=== PATIENT | female | born 1975 | race American Indian/Alaskan Native ===

== ENCOUNTER 2018-06-28 12:51 | Emergency (ER) | payer OTHER ==
[2018-06-28 14:11] VITALS: BP 143/92
--- NOTE | 2018-06-28 15:01 | Emergency Department Report ---
Blank Doc - Documentation Documentation: 42 y o female presents with back and pelvic paib x yestterday she is seen by Dr Mike CABALLERO and has a f/u appt hx of Hysterectomy states worsening pain UA ordered reevaluate
[2018-06-28 15:28] LABS: HCG Qualitative,Urine Negative (Negative)
[2018-06-28 15:33] LABS: Bacteria,Urine 1+ /HPF (Negative); Bilirubin,Urine NEG (Negative); Blood,Urine NEG (Negative); Color,Urine Yellow (Yellow); Mucus,Urine FEW /HPF; Protein,Urine <15 mg/dL mg/dL (Negative); RBC,Urine < 1.0 /HPF (0.0-6.0); Urobilinogen,Urine < 2.0 mg/dL (<2.0)
[2018-06-28] MEDS ORDERED: DELTASONE PO ONE (15:57)
[2018-06-28] MEDS ORDERED: TORADOL IM ONE (15:57)
--- NOTE | 2018-06-28 16:03 | Emergency Department Report ---
ED Back Pain/Injury HPI - General Chief Complaint: Back Pain/Injury Stated Complaint: BACK/PELVIC PAIN Time Seen by Provider: 06/28/18 14:10 Source: patient Limitations: No Limitations - History of Present Illness Initial Comments: This is a 42-year-old female nontoxic, well nourished in appearance, no acute signs of distress presents to the ED with c/o of lower back pain. Patient denies any radiation of pain. Patient denies any trauma. Denies any bladder or bowel instability. Patient denies any vaginal discharge or bleeding. Patient denies any urinary symptoms. Denies any fever, chills, nausea, vomiting, headache, stiff neck, chest pain or shortness of breath. Patient denies any numbness or tingling. Denies any allergies. MD Complaint: back pain -: week(s) (1) Similar Symptoms Previously: No Radiation: none Severity: mild Severity scale (0 -10): 8 Quality: aching Consistency: intermittent Improves With: immobilization, walking Worsens With: movement, walking Associated Symptoms: denies other symptoms. denies: confusion, weakness, chest pain, numbness, difficulty walking, cough, difficulty urinating, diaphoresis, incontinence, fever/chills, constipation, headaches, abdominal pain, loss of appetite, malaise, nausea/vomiting, rash, seizure, shortness of breath, syncope - Related Data Previous Rx's Medication Instructions Recorded Last Taken Type metFORMIN [Glucophage] 500 mg PO BID #60 tablet 05/09/18 Unknown Rx metroNIDAZOLE [Metronidazole] 500 mg PO BID #14 tablet 05/09/18 Unknown Rx Cyclobenzaprine [Flexeril] 10 mg PO QHS PRN #10 tablet 06/28/18 Unknown Rx Ibuprofen [Motrin] 600 mg PO Q8H PRN #20 tablet 06/28/18 Unknown Rx Allergies Allergy/AdvReac Type Severity Reaction Status Date / Time No Known Allergies Allergy Unverified 05/09/18 11:06 ED Review of Systems ROS: Stated complaint: BACK/PELVIC PAIN Other details as noted in HPI Constitutional: denies: chills, fever Eyes: denies: eye pain, eye discharge, vision change ENT: denies: ear pain, throat pain Respiratory: denies: cough, shortness of breath, wheezing Cardiovascular: denies: chest pain, palpitations Endocrine: no symptoms reported Gastrointestinal: denies: abdominal pain, nausea, diarrhea Genitourinary: denies: urgency, dysuria, discharge Musculoskeletal: back pain. denies: joint swelling, arthralgia Skin: denies: rash, lesions Neurological: denies: headache, weakness, paresthesias Psychiatric: denies: anxiety, depression Hematological/Lymphatic: denies: easy bleeding, easy bruising ED Past Medical Hx - Past Medical History Hx Diabetes: Yes - Surgical History Additional Surgical History: Hyst - Social History Smoking Status: Never Smoker Substance Use Type: None - Medications Home Medications: Home Medications Medication Instructions Recorded Confirmed Last Taken Type metFORMIN [Glucophage] 500 mg PO BID #60 tablet 05/09/18 Unknown Rx metroNIDAZOLE [Metronidazole] 500 mg PO BID #14 tablet 05/09/18 Unknown Rx Cyclobenzaprine [Flexeril] 10 mg PO QHS PRN #10 tablet 06/28/18 Unknown Rx Ibuprofen [Motrin] 600 mg PO Q8H PRN #20 tablet 06/28/18 Unknown Rx ED Physical Exam - General Limitations: No Limitations General appearance: alert, in no apparent distress - Head Head exam: Present: atraumatic, normocephalic - Eye Eye exam: Present: normal appearance - Neck Neck exam: Present: normal inspection, full ROM. Absent: tenderness, meningismus, lymphadenopathy - Respiratory Respiratory exam: Present: normal lung sounds bilaterally. Absent: respiratory distress, wheezes, rales, rhonchi, stridor, chest wall tenderness, accessory muscle use, decreased breath sounds, prolonged expiratory - Cardiovascular Cardiovascular Exam: Present: regular rate, normal rhythm. Absent: irregular rhythm, systolic murmur, diastolic murmur, rubs, gallop - GI/Abdominal GI/Abdominal exam: Present: soft, normal bowel sounds. Absent: distended, tenderness, guarding, rebound, rigid, diminished bowel sounds - Extremities Exam Extremities exam: Present: normal inspection, full ROM, normal capillary refill - Back Exam Back exam: Present: normal inspection, full ROM, paraspinal tenderness (right lumbar paraspinal area). Absent: tenderness, CVA tenderness (R), CVA tenderness (L), muscle spasm, vertebral tenderness, rash noted - Expanded Back Exam Expanded Back exam: Absent: saddle anesthesia Back exam: Negative Straight Leg Raising: Left, Right - Neurological Exam Neurological exam: Present: alert, oriented X3 - Psychiatric Psychiatric exam: Present: normal affect, normal mood - Skin Skin exam: Present: warm, dry, intact, normal color. Absent: rash ED Course Vital Signs 06/28/18 14:10 Temperature 97.8 F Pulse Rate 98 H Respiratory 16 Rate Blood Pressure 143/92 O2 Sat by Pulse 100 Oximetry - Reevaluation(s) Reevaluation #1: 06/28/18 16:04 Patient is speaking in full sentences with no signs of distress noted. ED Medical Decision Making - Medical Decision Making This is a 42-year-old female that presents with low back strain. Patient is stable was examined by me. There is no spinal tenderness. UA is unremarkable. There is no cauda equina syndrome during examination. No bladder or bowel instability. Patient received Toradol 60 mg IM and prednisone in the ED which she stated that symptoms has resolved and subsided. Patient is discharged with muscle relaxant and Motrin. Patient was instructed not to operate any machinery while taking muscle relaxant as they cause her drowsiness. Patient was referred to Follow-up with a primary care doctor in 3-5 days or if symptoms worsen and continue return to emergency room as soon as possible. At time of discharge, the patient does not seem toxic or ill in appearance. No acute signs of distress noted. Patient agrees to discharge treatment plan of care. No further questions noted by the patient. This chart is dictated with using [employer] Dictation Program Critical care attestation.: If time is entered above; I have spent that time in minutes in the direct care of this critically ill patient, excluding procedure time. ED Disposition Clinical Impression: Low back strain Disposition: DC-01 TO HOME OR SELFCARE Is pt being admited?: No Does the pt Need Aspirin: No Condition: Stable Instructions: Cyclobenzaprine (By mouth), Muscle Strain (ED) Additional Instructions: Follow-up with your primary care doctor in 3-5 days or if symptoms worsen such as bladder or bowel stability, chest pain, short of breath, numbness or tingling sensation in extremities, headache, dizziness, visual changes, nausea vomiting, or abdominal pain, return back to emergency room as was possible. Take ibuprofen and Flexeril as prescribed. Do not operate heavy machinery while taking Flexeril due to sedation Prescriptions: Cyclobenzaprine [Flexeril] 10 mg PO QHS PRN #10 tablet PRN Reason: Muscle Spasm Ibuprofen [Motrin] 600 mg PO Q8H PRN #20 tablet PRN Reason: Pain Referrals: PRIMARY CARE, [Referring] - 3-5 Days CAYDEN KIMBLE MD [Staff Physician] - 3-5 Days [facility] [Outside] - 3-5 Days [facility] [Outside] - 3-5 Days Forms: Work/School Release Form(ED)
== END 2018-06-28 14:58 | disposition home or self-care (01) ==
LOC: ED 12:51
DX: S39.012A Strain of muscle, fascia and tendon of lower back, initial encounter (principal); E11.9 Type 2 diabetes mellitus without complications; Z90.710 Acquired absence of both cervix and uterus; X58.XXXA Exposure to other specified factors, initial encounter; Y99.8 Other external cause status; Y93.89 Activity, other specified; Y92.89 Other specified places as the place of occurrence of the external cause
CPT/HCPCS: 81001; 81025; 96372; 99283; J1885; J7512

== ENCOUNTER 2018-07-18 06:08 | Day surgery (SDC) | payer OTHER ==
[~2018-07-18 06:08] MED LIST: LACTATED RINGERS 1,000 ML IV SCH; NEURONTIN PO NR; TRANSDERM-SCOP TD NR; VERSED IV NR
[2018-07-18] MEDS ORDERED: NACL BACTERIOSTATIC INFILTRATI ONE (06:41)
[2018-07-18 07:04] VITALS: BP 120/83
[2018-07-18] MEDS ORDERED: HumuLIN R IV ONE (08:00)
--- NOTE | 2018-07-18 08:34 | Event Note ---
Date: 07/18/18 Patient arrived to pre-op holding area for scheduled surgical procedure. POCT glucose was 336. During anesthetic evaluation, patient reported noncompliance with metformin 2/2 adverse effects. She also admitted to cocaine use, most recently 1 day ago. I explained to her the anesthetic risks in light of recent cocaine use including significant intraoperative hyper/hypotention, perioperative [place], CVA, or and that these risks outweighed the benefits of this elective procedure. Blood glucose treated to more acceptable range prior to d/c and patient encouraged to follow with PCP regarding apparent poorly controlled diabetes. The patient verbalized understanding.
== END 2018-07-18 08:15 | disposition home or self-care (01) ==
LOC: OR 06:08
PROVIDERS: ATTEND Obstetrics & Gynecology
DX: D28.0 Benign neoplasm of vulva (principal); G43.909 Migraine, unspecified, not intractable, without status migrainosus; G47.30 Sleep apnea, unspecified; F32.9 Major depressive disorder, single episode, unspecified; F41.9 Anxiety disorder, unspecified; Z53.8 Procedure and treatment not carried out for other reasons; Z79.84 Long term (current) use of oral hypoglycemic drugs; Z79.899 Other long term (current) drug therapy; Z91.040 Latex allergy status; Z98.49 Cataract extraction status, unspecified eye; Z90.710 Acquired absence of both cervix and uterus; Z87.440 Personal history of urinary (tract) infections
CPT/HCPCS: 82962; J7120; J1815

== ENCOUNTER 2018-10-25 06:33 | Emergency (ER) | payer SELFPAY ==
[2018-10-25 08:37] LABS: Bacteria,Urine 4+ /HPF (Negative); Bilirubin,Urine NEG (Negative); Blood,Urine NEG (Negative); Mucus,Urine 3+ /HPF; Urobilinogen,Urine < 2.0 mg/dL (<2.0)
[2018-10-25 08:38] LABS: Color,Urine Yellow (Yellow)
[2018-10-25] MEDS ORDERED: LIDOCAINE VISCOUS 2% ONE (10:03)
[2018-10-25] MEDS ORDERED: TORADOL IV STA (10:05)
[2018-10-25 11:08] LABS: Alanine Aminotransferase 16 units/L (7-56); BUN/Creatinine Ratio 12; Blood Urea Nitrogen 7 mg/dL (7-17); Calcium 9.6 mg/dL (8.4-10.2); Hemolysis Index 30
[2018-10-25 11:11] LABS: Basophils % (Auto) 0.3 % (0.0-1.8); Eosinophils # (Auto) 0.3 K/mm3 (0.0-0.4); Eosinophils % (Auto) 4.1 % (0.0-4.3); Hematocrit 41.4 % (30.3-42.9); Hemoglobin 13.7 gm/dl (10.1-14.3); Lymphocytes # (Auto) 3.2 K/mm3 (1.2-5.4); Lymphocytes % (Auto) 38.4 % (13.4-35.0); Mean Corpuscular HGB Conc 33 % (30-34); Mean Corpuscular Volume 83 fl (79-97); Monocytes # (Auto) 0.5 K/mm3 (0.0-0.8); Monocytes % (Auto) 6.1 % (0.0-7.3); Platelet Count 255 K/mm3 (140-440); Red Blood Count 4.97 M/mm3 (3.65-5.03); Red Cell Distribution Width 14.2 % (13.2-15.2)
--- NOTE | 2018-10-25 12:28 | Emergency Department Report ---
ED Female HPI - General Chief complaint: Abdominal Pain Stated complaint: PELVIC/ABD PAIN Time Seen by Provider: 10/25/18 08:06 Source: patient Mode of arrival: Ambulatory Limitations: No Limitations - History of Present Illness Initial comments: 43-year-old obese diabetic, diabetic foot female was been noncompliant with her insulin therapy over the past month reports emergency department having a vaginal discharge has been unresponsive to her attempted [id number] therapies 2. She reports that pelvic area has worsened Darshan for discharge and more discomfort and given to call some dysuria. She is no vaginal bleeding and denies the possibility of an STD as she states she has not been sexually active for the last 5 months. No at abdominal pain, no fevers, chills, sweats, no hematuria, no hematochezia. No constipation or diarrhea. She reports no known pelvic trauma. MD Complaint: vaginal discharge, pelvic pain -: Gradual Location: suprapubic Radiation: non-radiating Severity: mild Consistency: constant Improves with: none Are you Now?: No Associated Symptoms: vaginal discharge. denies: nausea/vomiting, fever/chills, loss of appetite, dysuria, hematuria, rash, seizure, shortness of breath, syncope, weakness - Related Data Home Medications Medication Instructions Recorded Confirmed Last Taken Fluticasone [Flonase] 1 spray NS PRN PRN 07/11/18 07/18/18 07/11/18 09:00 Ibuprofen [Ibu] 400 mg PO PRN PRN 07/11/18 07/18/18 07/11/18 09:00 Previous Rx's Medication Instructions Recorded Last Taken Type metFORMIN [Glucophage] 500 mg PO BID #60 tablet 05/09/18 07/11/18 09:00 Rx Acyclovir [Zovirax Tab] 800 mg PO 5XD #40 tablet 10/25/18 Unknown Rx Fluconazole [Diflucan TAB] 150 mg PO ONCE #1 tablet 10/25/18 Unknown Rx Insulin NPH/Regular [Novolin 70/30] 25 unit SQ BIDDIAB #15 ml 10/25/18 Unknown Rx metroNIDAZOLE [Flagyl] 500 mg PO Q12HR #20 tab 10/25/18 Unknown Rx Allergies Allergy/AdvReac Type Severity Reaction Status Date / Time latex AdvReac Itching Verified 07/18/18 07:02 ED Review of Systems ROS: Stated complaint: PELVIC/ABD PAIN Other details as noted in HPI Constitutional: denies: chills, fever Eyes: denies: eye pain, eye discharge, vision change ENT: denies: ear pain, throat pain Respiratory: denies: cough, shortness of breath, wheezing Cardiovascular: denies: chest pain, palpitations Endocrine: no symptoms reported Gastrointestinal: denies: abdominal pain, nausea, diarrhea Genitourinary: discharge. denies: urgency, dysuria Musculoskeletal: denies: back pain, joint swelling, arthralgia Skin: denies: rash, lesions Neurological: denies: headache, weakness, paresthesias Psychiatric: denies: anxiety, depression Hematological/Lymphatic: denies: easy bleeding, easy bruising ED Past Medical Hx - Past Medical History Previous Medical History?: Yes Hx Hypertension: No Hx Diabetes: Yes Hx Headaches / Migraines: Yes (MIGRAINES) Hx HIV: No - Surgical History Past Surgical History?: Yes Additional Surgical History: Hysterectomy - Social History Smoking Status: Never Smoker Substance Use Type: None - Medications Home Medications: Home Medications Medication Instructions Recorded Confirmed Last Taken Type metFORMIN [Glucophage] 500 mg PO BID #60 tablet 05/09/18 07/18/18 07/11/18 09:00 Rx Fluticasone [Flonase] 1 spray NS PRN PRN 07/11/18 07/18/18 07/11/18 09:00 History Ibuprofen [Ibu] 400 mg PO PRN PRN 07/11/18 07/18/18 07/11/18 09:00 History Acyclovir [Zovirax Tab] 800 mg PO 5XD #40 tablet 10/25/18 Unknown Rx Fluconazole [Diflucan TAB] 150 mg PO ONCE #1 tablet 10/25/18 Unknown Rx Insulin NPH/Regular [Novolin 70/30] 25 unit SQ BIDDIAB #15 ml 10/25/18 Unknown Rx metroNIDAZOLE [Flagyl] 500 mg PO Q12HR #20 tab 10/25/18 Unknown Rx ED Physical Exam - General Limitations: No Limitations General appearance: alert, in no apparent distress - Head Head exam: Present: atraumatic, normocephalic - Eye Eye exam: Present: normal appearance - ENT ENT exam: Present: mucous membranes moist - Neck Neck exam: Present: normal inspection - Respiratory Respiratory exam: Present: normal lung sounds bilaterally. Absent: respiratory distress - Cardiovascular Cardiovascular Exam: Present: regular rate, normal rhythm. Absent: systolic murmur, diastolic murmur, rubs, gallop - GI/Abdominal GI/Abdominal exam: Present: soft, normal bowel sounds - External exam: Present: erythema, other (excoriated areas to the labia minora and medial aspect of the labial majora with fissures present as well. 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 Absent: cervical motion tendernes, adnexal tenderness, uterine enlargement, uterine tenderness - Extremities Exam Extremities exam: Present: normal inspection, full ROM, normal capillary refill. Absent: pedal edema, joint swelling - Back Exam Back exam: Present: normal inspection - Neurological Exam Neurological exam: Present: alert, oriented X3, CN II-XII intact - Psychiatric Psychiatric exam: Present: normal affect, normal mood - Skin Skin exam: Present: warm, dry, intact, normal color. Absent: rash ED Course Vital Signs 10/25/18 10/25/18 10/25/18 06:41 10:13 12:09 Temperature 97.6 F 97.8 F Pulse Rate 94 H Respiratory 18 16 16 Rate Blood Pressure 124/83 123/82 O2 Sat by Pulse Oximetry 10/25/18 12:10 Temperature Pulse Rate 87 Respiratory Rate Blood Pressure O2 Sat by Pulse 98 Oximetry ED Medical Decision Making - Lab Data Result diagrams: 10/25/18 10:31 10/25/18 10:31 Critical care attestation.: If time is entered above; I have spent that time in minutes in the direct care of this critically ill patient, excluding procedure time. ED Disposition Clinical Impression: Vaginitis, Ulcerative vaginitis, Chest pain, Type 2 diabetes mellitus with insulin therapy Disposition: - TO HOME OR SELFCARE Is pt being admited?: No Does the pt Need Aspirin: No Condition: Stable Instructions: Abdominal Pain (ED), Chest Pain (ED), Diabetes Mellitus Type 2 in Adults (ED) Prescriptions: Fluconazole [Diflucan TAB] 150 mg PO ONCE #1 tablet metroNIDAZOLE [Flagyl] 500 mg PO Q12HR #20 tab Insulin NPH/Regular [Novolin 70/30] 25 unit SQ BIDDIAB #15 ml Acyclovir [Zovirax Tab] 800 mg PO 5XD #40 tablet [facility] FERM[facility]N [Primary Care Provider] - 3-5 Days [facility] [Provider Group] - 3-5 Days
[2018-10-25 12:40] VITALS: BP 121/81
== END 2018-10-25 12:39 | disposition home or self-care (01) ==
LOC: ED 06:33
DX: N76.0 Acute vaginitis (principal); R07.89 Other chest pain; G43.909 Migraine, unspecified, not intractable, without status migrainosus; E11.9 Type 2 diabetes mellitus without complications; Z79.4 Long term (current) use of insulin; Z90.710 Acquired absence of both cervix and uterus; Z91.041 Radiographic dye allergy status; Z79.899 Other long term (current) drug therapy
CPT/HCPCS: 36415; 80053; 81001; 82962; 84484; 85025; 87076; 87086; 87186; 87210; 87591; 93005; 93010; 96374; 99284; J1885

== ENCOUNTER 2019-01-01 12:21 | Emergency (ER) | payer SELFPAY ==
--- NOTE | 2019-01-01 12:26 | Emergency Department Report ---
Blank Doc - Documentation Documentation: This is a 43-year-old female that presents with bilateral upper and lower ext tingling and numbness sensation. HX of diabetes. This initial assessment/diagnostic orders/clinical plan/treatment(s) is/are subject to change based on patient's health status, clinical progression and re- assessment by fellow clinical providers in the ED. Further treatment and workup at subsequent clinical providers discretion. Patient/guardians urged not to elope from the ED as their condition may be serious if not clinically assessed and managed. Initial orders include: 1- Patient sent to [facility] for further evaluation and treatment 2- labs
[2019-01-01 12:30] VITALS: BP 133/87
[2019-01-01 13:35] LABS: BUN/Creatinine Ratio 17; Blood Urea Nitrogen 12 mg/dL (7-17); Calcium 9.6 mg/dL (8.4-10.2); Hemolysis Index 8
[2019-01-01 14:37] LABS: Hematocrit 38.5 % (30.3-42.9); Hemoglobin 12.6 gm/dl (10.1-14.3); Mean Corpuscular HGB Conc 33 % (30-34); Mean Corpuscular Volume 84 fl (79-97); Platelet Count 265 K/mm3 (140-440); Red Cell Distribution Width 15.2 % (13.2-15.2)
--- NOTE | 2019-01-01 15:12 | Emergency Department Report ---
ED Extremity Problem HPI - General Chief complaint: Neuro Symptoms/Deficit Stated complaint: DIABETIC/NUMBNESS HANDS/FEET Time Seen by Provider: 01/01/19 12:25 Source: patient Mode of arrival: Ambulatory Limitations: No Limitations - History of Present Illness Initial comments: Patient is a 43-year-old female who has a past medical history of diabetes who is presenting with bilateral hand and foot numbness and pain. Patient states the pain didn't present for approximate 1 week. She denies any trauma. Patient states is a searing pain is 10 out of 10 in severity. Patient states her blood sugars have been fluctuating lately and she does have appointment soon to see her primary care physician. Patient denies any nausea vomiting fevers chills cough cold or congestion at this time. - Related Data Home Medications Medication Instructions Recorded Confirmed Last Taken Fluticasone [Flonase] 1 spray NS PRN PRN 07/11/18 07/18/18 07/11/18 09:00 Ibuprofen [Ibu] 400 mg PO PRN PRN 07/11/18 07/18/18 07/11/18 09:00 Previous Rx's Medication Instructions Recorded Last Taken Type metFORMIN [Glucophage] 500 mg PO BID #60 tablet 05/09/18 07/11/18 09:00 Rx Acyclovir [Zovirax Tab] 800 mg PO 5XD #40 tablet 10/25/18 Unknown Rx Fluconazole [Diflucan TAB] 150 mg PO ONCE #1 tablet 10/25/18 Unknown Rx Insulin NPH/Regular [Novolin 70/30] 25 unit SQ BIDDIAB #15 ml 10/25/18 Unknown Rx metroNIDAZOLE [Flagyl] 500 mg PO Q12HR #20 tab 10/25/18 Unknown Rx Gabapentin [Neurontin] 300 mg PO Q8HR #60 capsule 01/01/19 Unknown Rx traMADol [Ultram] 50 mg PO Q6HR PRN #12 tablet 01/01/19 Unknown Rx Allergies Allergy/AdvReac Type Severity Reaction Status Date / Time latex AdvReac Itching Verified 07/18/18 07:02 ED Review of Systems ROS: Stated complaint: DIABETIC/NUMBNESS HANDS/FEET Other details as noted in HPI Comment: All other systems reviewed and negative ED Past Medical Hx - Past Medical History Previous Medical History?: Yes Hx Hypertension: No Hx Diabetes: Yes Hx Headaches / Migraines: Yes (MIGRAINES) Hx HIV: No - Surgical History Past Surgical History?: Yes Additional Surgical History: Hysterectomy - Social History Smoking Status: Never Smoker Substance Use Type: None - Medications Home Medications: Home Medications Medication Instructions Recorded Confirmed Last Taken Type metFORMIN [Glucophage] 500 mg PO BID #60 tablet 05/09/18 07/18/18 07/11/18 09:00 Rx Fluticasone [Flonase] 1 spray NS PRN PRN 07/11/18 07/18/18 07/11/18 09:00 History Ibuprofen [Ibu] 400 mg PO PRN PRN 07/11/18 07/18/18 07/11/18 09:00 History Acyclovir [Zovirax Tab] 800 mg PO 5XD #40 tablet 10/25/18 Unknown Rx Fluconazole [Diflucan TAB] 150 mg PO ONCE #1 tablet 10/25/18 Unknown Rx Insulin NPH/Regular [Novolin 70/30] 25 unit SQ BIDDIAB #15 ml 10/25/18 Unknown Rx metroNIDAZOLE [Flagyl] 500 mg PO Q12HR #20 tab 10/25/18 Unknown Rx Gabapentin [Neurontin] 300 mg PO Q8HR #60 capsule 01/01/19 Unknown Rx traMADol [Ultram] 50 mg PO Q6HR PRN #12 tablet 01/01/19 Unknown Rx ED Physical Exam - General Limitations: No Limitations General appearance: alert, in no apparent distress - Head Head exam: Present: atraumatic, normocephalic - Eye Eye exam: Present: normal appearance, PERRL, EOMI - ENT ENT exam: Present: mucous membranes moist - Neck Neck exam: Present: normal inspection - Respiratory Respiratory exam: Present: normal lung sounds bilaterally. Absent: respiratory distress, wheezes, rales, rhonchi, stridor - Cardiovascular Cardiovascular Exam: Present: regular rate, normal rhythm. Absent: systolic murmur, diastolic murmur, rubs, gallop - GI/Abdominal GI/Abdominal exam: Present: soft, normal bowel sounds. Absent: distended, guarding, rebound - Extremities Exam Extremities exam: Present: normal inspection - Back Exam Back exam: Present: normal inspection - Neurological Exam Neurological exam: Present: alert, oriented X3 - Psychiatric Psychiatric exam: Present: normal affect, normal mood - Skin Skin exam: Present: warm, dry, intact, normal color. Absent: rash ED Course Vital Signs 01/01/19 12:26 Temperature 98 F Pulse Rate 105 H Respiratory 20 Rate Blood Pressure 133/87 O2 Sat by Pulse 98 Oximetry ED Medical Decision Making - Lab Data Result diagrams: 01/01/19 13:00 01/01/19 13:00 - Medical Decision Making Patient's had laboratory studies done to rule out hyperglycemia electrolyte abnormality and anemia. Patient's laboratory studies are relatively within normal limits. Patient's hyperglycemia is mild. Patient likely with a simple peripheral neuropathy. Patient to be started on Neurontin and be discharged home. Critical care attestation.: If time is entered above; I have spent that time in minutes in the direct care of this critically ill patient, excluding procedure time. ED Disposition Clinical Impression: Diabetic neuropathy Qualifiers: Diabetes mellitus type: type 1 Diabetes mellitus complication detail: diabetic polyneuropathy Qualified Code(s): E10.42 - Type 1 diabetes mellitus with diabetic polyneuropathy Disposition: DC-01 TO HOME OR SELFCARE Is pt being admited?: No Does the pt Need Aspirin: No Condition: Stable Instructions: Diabetic Neuropathy (ED) Referrals: EVA NEWELL MD [Primary Care Provider] - 3-5 Days Time of Disposition: 15:16
[2019-01-01 15:14] LABS: Basophils % (Manual) 0 % (0.0-1.8); Monocytes % (Manual) 0 % (0.0-7.3); Total Cells Counted 100
[2019-01-01 15:15] LABS: Platelet Estimate Consistent w Auto; RBC Morphology Normal
== END 2019-01-01 16:19 | disposition home or self-care (01) ==
LOC: ED 12:21
DX: E10.42 Type 1 diabetes mellitus with diabetic polyneuropathy (principal); G43.909 Migraine, unspecified, not intractable, without status migrainosus; Z91.040 Latex allergy status; Z79.4 Long term (current) use of insulin; Z79.899 Other long term (current) drug therapy; Z90.710 Acquired absence of both cervix and uterus
CPT/HCPCS: 36415; 80048; 82962; 85007; 85025; 99283

== ENCOUNTER 2019-02-20 04:11 | Emergency (ER) | payer SELFPAY ==
[2019-02-20 04:24] VITALS: BP 122/88
[2019-02-20] MEDS ORDERED: LIDOCAINE VISCOUS 2% 15 ML ORAL LIQD ONE (05:06)
[2019-02-20] MEDS ORDERED: LIDOCAINE VISCOUS 2% 15 ML ORAL LIQD PO ONE (05:06)
--- NOTE | 2019-02-20 06:53 | Emergency Department Report ---
ED Female HPI - General Chief complaint: Urogenital-Female Stated complaint: VAG WARTS W/PAIN Time Seen by Provider: 02/20/19 05:02 Source: patient Mode of arrival: Ambulatory Limitations: No Limitations - History of Present Illness Initial comments: 43-year-old female as well as department complaining of a reemergence of a vaginal rash which was found to be of a HPV/vaginal warts origin. She is due to follow with ELEVATORS INSPECTOR in 2 weeks persisted. Discomfort is beginning to develop so she seeks treatment for the pain. Reports no dysuria. No vaginal discharge, no vaginal bleeding, no fevers, chills or sweats MD Complaint: possible STD, other -: Sudden Location: labia Radiation: non-radiating Severity: mild Quality: dull Consistency: constant Improves with: none Worsens with: none Are you Now?: No Associated Symptoms: denies: abdominal pain, nausea/vomiting, fever/chills, loss of appetite, dysuria, hematuria, rash, weakness - Related Data Sexually active: No Home Medications Medication Instructions Recorded Confirmed Last Taken Fluticasone [Flonase] 1 spray NS PRN PRN 07/11/18 07/18/18 07/11/18 09:00 Ibuprofen [Ibu] 400 mg PO PRN PRN 07/11/18 07/18/18 07/11/18 09:00 Previous Rx's Medication Instructions Recorded Last Taken Type metFORMIN [Glucophage] 500 mg PO BID #60 tablet 05/09/18 07/11/18 09:00 Rx Acyclovir [Zovirax Tab] 800 mg PO 5XD #40 tablet 10/25/18 Unknown Rx Fluconazole [Diflucan TAB] 150 mg PO ONCE #1 tablet 10/25/18 Unknown Rx Insulin NPH/Regular [Novolin 70/30] 25 unit SQ BIDDIAB #15 ml 10/25/18 Unknown Rx metroNIDAZOLE [Flagyl] 500 mg PO Q12HR #20 tab 10/25/18 Unknown Rx Gabapentin [Neurontin] 300 mg PO Q8HR #60 capsule 01/01/19 Unknown Rx traMADol [Ultram] 50 mg PO Q6HR PRN #12 tablet 01/01/19 Unknown Rx Lidocaine Viscous 2% 5 ml MM Q4H #240 udc 02/20/19 Unknown Rx Podofilox [Condylox 0.5%] 1 applicatio TP BID #1 gel..gram. 02/20/19 Unknown Rx Allergies Allergy/AdvReac Type Severity Reaction Status Date / Time latex AdvReac Itching Verified 07/18/18 07:02 ED Review of Systems ROS: Stated complaint: VAG WARTS W/PAIN Other details as noted in HPI Comment: All other systems reviewed and negative ED Past Medical Hx - Past Medical History Previous Medical History?: Yes Hx Hypertension: No Hx Diabetes: Yes Hx Headaches / Migraines: Yes (MIGRAINES) Hx HIV: No Additional medical history: neuropathy - Surgical History Past Surgical History?: No Additional Surgical History: Hysterectomy - Social History Smoking Status: Never Smoker Substance Use Type: None - Medications Home Medications: Home Medications Medication Instructions Recorded Confirmed Last Taken Type metFORMIN [Glucophage] 500 mg PO BID #60 tablet 05/09/18 07/18/18 07/11/18 09:00 Rx Fluticasone [Flonase] 1 spray NS PRN PRN 07/11/18 07/18/18 07/11/18 09:00 History Ibuprofen [Ibu] 400 mg PO PRN PRN 07/11/18 07/18/18 07/11/18 09:00 History Acyclovir [Zovirax Tab] 800 mg PO 5XD #40 tablet 10/25/18 Unknown Rx Fluconazole [Diflucan TAB] 150 mg PO ONCE #1 tablet 10/25/18 Unknown Rx Insulin NPH/Regular [Novolin 70/30] 25 unit SQ BIDDIAB #15 ml 10/25/18 Unknown Rx metroNIDAZOLE [Flagyl] 500 mg PO Q12HR #20 tab 10/25/18 Unknown Rx Gabapentin [Neurontin] 300 mg PO Q8HR #60 capsule 01/01/19 Unknown Rx traMADol [Ultram] 50 mg PO Q6HR PRN #12 tablet 01/01/19 Unknown Rx Lidocaine Viscous 2% 5 ml MM Q4H #240 udc 02/20/19 Unknown Rx Podofilox [Condylox 0.5%] 1 applicatio TP BID #1 gel..gram. 02/20/19 Unknown Rx ED Physical Exam - General Limitations: No Limitations General appearance: alert, in no apparent distress - Head Head exam: Present: atraumatic, normocephalic - Eye Eye exam: Present: normal appearance - ENT ENT exam: Present: mucous membranes moist - Neck Neck exam: Present: normal inspection - Respiratory Respiratory exam: Present: normal lung sounds bilaterally. Absent: respiratory distress - Cardiovascular Cardiovascular Exam: Present: regular rate, normal rhythm. Absent: systolic murmur, diastolic murmur, rubs, gallop - GI/Abdominal GI/Abdominal exam: Present: soft, normal bowel sounds - Rectal Rectal exam: Present: other - External exam: Present: lesions (vaginal lesions to the left labia minora of a HPV/also wore fashion in conjunction with some excoriation and fifth and fissures noted. No active vaginal discharge was is appreciated. No lymphadenopathy), other (nurse profile shaper operator was present) - Extremities Exam Extremities exam: Present: normal inspection - Back Exam Back exam: Present: normal inspection - Neurological Exam Neurological exam: Present: alert, oriented X3 - Psychiatric Psychiatric exam: Present: normal affect, normal mood - Skin Skin exam: Present: warm, dry, intact, normal color. Absent: rash ED Course Vital Signs 02/20/19 04:21 Temperature 97.8 F Pulse Rate 100 H Respiratory 18 Rate Blood Pressure 122/88 [Right] O2 Sat by Pulse 98 Oximetry ED Medical Decision Making - Medical Decision Making 3-year-old [place] female with recurrent vaginal lesions depend on discussion with regards to viral viral vaginal lesions. 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 Advisor. They reported to follow-up with an ELEVATORS INSPECTOR or primary care provider to initiate the therapy for these lesions as they are difficult to eradicate. She understands the importance that she is requesting some lidocaine of the fissures with there is some discomfort. Hygiene was also discussed with her in great detail Critical care attestation.: If time is entered above; I have spent that time in minutes in the direct care of this critically ill patient, excluding procedure time. ED Disposition Clinical Impression: Vaginal venereal warts Disposition: DC- TO HOME OR SELFCARE Is pt being admited?: No Does the pt Need Aspirin: No Condition: Stable Instructions: Genital Warts (ED) Prescriptions: Podofilox [Condylox 0.5%] 1 applicatio TP BID #1 gel..gram. Lidocaine Viscous 2% 5 ml MM Q4H #240 [facility] [place] Referrals: [facility] [Provider Group] - 3-5 Days
== END 2019-02-20 07:03 | disposition home or self-care (01) ==
LOC: ED 04:11
DX: A63.0 Anogenital (venereal) warts (principal); E11.40 Type 2 diabetes mellitus with diabetic neuropathy, unspecified; G43.909 Migraine, unspecified, not intractable, without status migrainosus; Z90.710 Acquired absence of both cervix and uterus; Z79.899 Other long term (current) drug therapy; Z91.041 Radiographic dye allergy status
CPT/HCPCS: 99282

== ENCOUNTER 2019-03-01 09:05 | Emergency (ER) | payer SELFPAY ==
[2019-03-01 09:12] VITALS: BP 129/90
[2019-03-01] MEDS ORDERED: traMADol 50 MG TAB PO ONE (09:38)
--- NOTE | 2019-03-01 09:38 | Emergency Department Report ---
ED General Adult HPI - General Chief complaint: Chest Pain Stated complaint: BODY PAIN Time Seen by Provider: 03/01/19 09:32 Source: patient Mode of arrival: Ambulatory Limitations: No Limitations - History of Present Illness Initial comments: CC: "My bones hurt." HPI: Mrs. Farah is a 43 yo female with past medical history of type 2 diabetes mellitus and neuropathy who presents with generalized malaise, body pain, nasal congestiona and chills for several days. Symptoms began on Tuesday with nasal congestion. Eye redness. She also has swollen face. She has diffuse body aches. Positive shortness of breath. Denies cough. No fever. She does have chills. -: Gradual, days(s) (5) Location: chest, back, left, right, upper extremity, lower extremity Severity scale (0 -10): 6 Quality: aching Consistency: constant Improves with: none Worsens with: none Associated Symptoms: malaise - Related Data Home Medications Medication Instructions Recorded Confirmed Last Taken Fluticasone [Flonase] 1 spray NS PRN PRN 07/11/18 07/18/18 07/11/18 09:00 Ibuprofen [Ibu] 400 mg PO PRN PRN 07/11/18 07/18/18 07/11/18 09:00 Previous Rx's Medication Instructions Recorded Last Taken Type metFORMIN [Glucophage] 500 mg PO BID #60 tablet 05/09/18 07/11/18 09:00 Rx Acyclovir [Zovirax Tab] 800 mg PO 5XD #40 tablet 10/25/18 Unknown Rx Fluconazole [Diflucan TAB] 150 mg PO ONCE #1 tablet 10/25/18 Unknown Rx Insulin NPH/Regular [Novolin 70/30] 25 unit SQ BIDDIAB #15 ml 10/25/18 Unknown Rx metroNIDAZOLE [Flagyl] 500 mg PO Q12HR #20 tab 10/25/18 Unknown Rx Gabapentin [Neurontin] 300 mg PO Q8HR #60 capsule 01/01/19 Unknown Rx traMADol [Ultram] 50 mg PO Q6HR PRN #12 tablet 01/01/19 Unknown Rx Lidocaine Viscous 2% 5 ml MM Q4H #240 udc 02/20/19 Unknown Rx Podofilox [Condylox 0.5%] 1 applicatio TP BID #1 gel..gram. 02/20/19 Unknown Rx traMADol [Ultram 50 MG tab] 50 mg PO Q6HR PRN #15 tablet 03/01/19 Unknown Rx Allergies Allergy/AdvReac Type Severity Reaction Status Date / Time latex AdvReac Itching Verified 07/18/18 07:02 ED Review of Systems ROS: Stated complaint: BODY PAIN Other details as noted in HPI Comment: All other systems reviewed and negative Constitutional: chills, malaise. denies: fever ENT: congestion Respiratory: shortness of breath. denies: cough Cardiovascular: denies: chest pain Musculoskeletal: myalgia ED Past Medical Hx - Past Medical History Previous Medical History?: Yes Hx Hypertension: No Hx Diabetes: Yes Hx Headaches / Migraines: Yes (MIGRAINES) Hx HIV: No Additional medical history: neuropathy - Surgical History Past Surgical History?: Yes Additional Surgical History: Hysterectomy - Social History Smoking Status: Never Smoker Substance Use Type: None - Medications Home Medications: Home Medications Medication Instructions Recorded Confirmed Last Taken Type metFORMIN [Glucophage] 500 mg PO BID #60 tablet 05/09/18 07/18/18 07/11/18 09:00 Rx Fluticasone [Flonase] 1 spray NS PRN PRN 07/11/18 07/18/18 07/11/18 09:00 History Ibuprofen [Ibu] 400 mg PO PRN PRN 07/11/18 07/18/18 07/11/18 09:00 History Acyclovir [Zovirax Tab] 800 mg PO 5XD #40 tablet 10/25/18 Unknown Rx Fluconazole [Diflucan TAB] 150 mg PO ONCE #1 tablet 10/25/18 Unknown Rx Insulin NPH/Regular [Novolin 70/30] 25 unit SQ BIDDIAB #15 ml 10/25/18 Unknown Rx metroNIDAZOLE [Flagyl] 500 mg PO Q12HR #20 tab 10/25/18 Unknown Rx Gabapentin [Neurontin] 300 mg PO Q8HR #60 capsule 01/01/19 Unknown Rx traMADol [Ultram] 50 mg PO Q6HR PRN #12 tablet 01/01/19 Unknown Rx Lidocaine Viscous 2% 5 ml MM Q4H #240 udc 02/20/19 Unknown Rx Podofilox [Condylox 0.5%] 1 applicatio TP BID #1 gel..gram. 02/20/19 Unknown Rx traMADol [Ultram 50 MG tab] 50 mg PO Q6HR PRN #15 tablet 03/01/19 Unknown Rx ED Physical Exam - General Limitations: No Limitations General appearance: alert, in no apparent distress - Head Head exam: Present: atraumatic, normocephalic - Eye Eye exam: Present: normal appearance - ENT ENT exam: Present: mucous membranes moist - Neck Neck exam: Present: normal inspection - Respiratory Respiratory exam: Present: normal lung sounds bilaterally. Absent: respiratory distress, wheezes, rales, rhonchi - Cardiovascular Cardiovascular Exam: Present: regular rate, normal rhythm, normal heart sounds. Absent: systolic murmur, diastolic murmur, rubs, gallop - GI/Abdominal GI/Abdominal exam: Present: soft, normal bowel sounds. Absent: distended, tenderness, guarding, rebound - Extremities Exam Extremities exam: Present: normal inspection - Back Exam Back exam: Present: normal inspection - Neurological Exam Neurological exam: Present: alert, oriented X3 - Psychiatric Psychiatric exam: Present: normal affect, normal mood - Skin Skin exam: Present: warm, dry, intact, normal color. Absent: rash ED Course Vital Signs 03/01/19 09:10 Temperature 97.3 F L Pulse Rate 88 Respiratory 16 Rate Blood Pressure 129/90 O2 Sat by Pulse 99 Oximetry ED Medical Decision Making - EKG Data EKG shows normal: sinus rhythm, axis, intervals, QRS complexes, ST-T waves Rate: normal - EKG Data Interpretation: normal EKG - Medical Decision Making Clinical impression flulike illness viral syndrome recommended rest hydration. Prescribed tramadol for comfort Critical care attestation.: If time is entered above; I have spent that time in minutes in the direct care of this critically ill patient, excluding procedure time. ED Disposition Clinical Impression: Viral syndrome Disposition: DC-01 TO HOME OR SELFCARE Is pt being admited?: No Does the pt Need Aspirin: No Condition: Stable Instructions: Viral Syndrome (ED) Prescriptions: traMADol [Ultram 50 MG tab] 50 mg PO Q6HR PRN #15 tablet PRN Reason: Pain Referrals: [facility] [Outside] - 3-5 Days Forms: Work/School Release Form(ED)
== END 2019-03-01 10:29 | disposition home or self-care (01) ==
LOC: ED 09:05
DX: B34.9 Viral infection, unspecified (principal); E11.9 Type 2 diabetes mellitus without complications; G43.909 Migraine, unspecified, not intractable, without status migrainosus; Z90.710 Acquired absence of both cervix and uterus; Z79.899 Other long term (current) drug therapy; Z91.040 Latex allergy status
CPT/HCPCS: 93005; 93010

== ENCOUNTER 2019-03-29 08:14 | Emergency (ER) | payer OTHER ==
[2019-03-29 08:20] VITALS: BP 127/86
--- NOTE | 2019-03-29 08:50 | Emergency Department Report ---
ED Female HPI - General Chief complaint: Urogenital-Female Stated complaint: VAGINAL PAINS/DISCOMFORT Time Seen by Provider: 03/29/19 08:35 Source: patient Mode of arrival: Ambulatory Limitations: No Limitations - History of Present Illness Initial comments: Patient is 43 years old female with history of diabetes. Patient presented to the ER complaining of vaginal pain for the last 3 months. Patient stated that she was seen in multiple ERs for the same complaint and she was diagnosed with herpes, bacterial vaginosis and fungal infection. Patient stated that she followed up with her primary care physician but no improvement with all the medication that she receives. Patient currently denying any fever, chills, nausea or vomiting. Vital signs stable. MD Complaint: other (vaginal pain) -: month(s) - Related Data Home Medications Medication Instructions Recorded Confirmed Last Taken Fluticasone [Flonase] 1 spray NS PRN PRN 07/11/18 07/18/18 07/11/18 09:00 Ibuprofen [Ibu] 400 mg PO PRN PRN 07/11/18 07/18/18 07/11/18 09:00 Previous Rx's Medication Instructions Recorded Last Taken Type metFORMIN [Glucophage] 500 mg PO BID #60 tablet 05/09/18 07/11/18 09:00 Rx Acyclovir [Zovirax Tab] 800 mg PO 5XD #40 tablet 10/25/18 Unknown Rx Fluconazole [Diflucan TAB] 150 mg PO ONCE #1 tablet 10/25/18 Unknown Rx Insulin NPH/Regular [Novolin 70/30] 25 unit SQ BIDDIAB #15 ml 10/25/18 Unknown Rx metroNIDAZOLE [Flagyl] 500 mg PO Q12HR #20 tab 10/25/18 Unknown Rx Gabapentin [Neurontin] 300 mg PO Q8HR #60 capsule 01/01/19 Unknown Rx traMADol [Ultram] 50 mg PO Q6HR PRN #12 tablet 01/01/19 Unknown Rx Lidocaine Viscous 2% 5 ml MM Q4H #240 udc 02/20/19 Unknown Rx Podofilox [Condylox 0.5%] 1 applicatio TP BID #1 gel..gram. 02/20/19 Unknown Rx traMADol [Ultram 50 MG tab] 50 mg PO Q6HR PRN #15 tablet 03/01/19 Unknown Rx Allergies Allergy/AdvReac Type Severity Reaction Status Date / Time latex AdvReac Itching Verified 07/18/18 07:02 ED Review of Systems ROS: Stated complaint: VAGINAL PAINS/DISCOMFORT Other details as noted in HPI Comment: All other systems reviewed and negative Constitutional: denies: chills, fever Respiratory: denies: cough, shortness of breath Cardiovascular: denies: chest pain Gastrointestinal: denies: abdominal pain, nausea Neurological: denies: headache, weakness ED Past Medical Hx - Past Medical History Previous Medical History?: Yes Hx Hypertension: No Hx Diabetes: Yes Hx Headaches / Migraines: Yes (MIGRAINES) Hx HIV: No Additional medical history: neuropathy - Surgical History Past Surgical History?: Yes Additional Surgical History: Hysterectomy - Social History Smoking Status: Never Smoker Substance Use Type: None - Medications Home Medications: Home Medications Medication Instructions Recorded Confirmed Last Taken Type metFORMIN [Glucophage] 500 mg PO BID #60 tablet 05/09/18 07/18/18 07/11/18 09:00 Rx Fluticasone [Flonase] 1 spray NS PRN PRN 07/11/18 07/18/18 07/11/18 09:00 History Ibuprofen [Ibu] 400 mg PO PRN PRN 07/11/18 07/18/18 07/11/18 09:00 History Acyclovir [Zovirax Tab] 800 mg PO 5XD #40 tablet 10/25/18 Unknown Rx Fluconazole [Diflucan TAB] 150 mg PO ONCE #1 tablet 10/25/18 Unknown Rx Insulin NPH/Regular [Novolin 70/30] 25 unit SQ BIDDIAB #15 ml 10/25/18 Unknown Rx metroNIDAZOLE [Flagyl] 500 mg PO Q12HR #20 tab 10/25/18 Unknown Rx Gabapentin [Neurontin] 300 mg PO Q8HR #60 capsule 01/01/19 Unknown Rx traMADol [Ultram] 50 mg PO Q6HR PRN #12 tablet 01/01/19 Unknown Rx Lidocaine Viscous 2% 5 ml MM Q4H #240 udc 02/20/19 Unknown Rx Podofilox [Condylox 0.5%] 1 applicatio TP BID #1 gel..gram. 02/20/19 Unknown Rx traMADol [Ultram 50 MG tab] 50 mg PO Q6HR PRN #15 tablet 03/01/19 Unknown Rx ED Physical Exam - General Limitations: No Limitations General appearance: alert, in no apparent distress - Head Head exam: Present: atraumatic, normocephalic, normal inspection - Eye Eye exam: Present: normal appearance - ENT ENT exam: Present: normal exam, normal orophraynx - Neck Neck exam: Present: normal inspection - Respiratory Respiratory exam: Present: normal lung sounds bilaterally - Cardiovascular Cardiovascular Exam: Present: regular rate - GI/Abdominal GI/Abdominal exam: Present: soft. Absent: distended, tenderness, guarding, rebound, rigid - Extremities Exam Extremities exam: Present: normal inspection, full ROM, normal capillary refill - Back Exam Back exam: Present: normal inspection, full ROM. Absent: CVA tenderness (R), CVA tenderness (L) - Neurological Exam Neurological exam: Present: alert, oriented X3, CN II-XII intact - Psychiatric Psychiatric exam: Present: normal mood - Skin Skin exam: Present: warm, intact, normal color ED Course Vital Signs 03/29/19 08:19 Temperature 97.2 F L Pulse Rate 95 H Respiratory 16 Rate Blood Pressure 127/86 O2 Sat by Pulse 97 Oximetry ED Medical Decision Making - Medical Decision Making Urine is positive for UTI. Patient be treated with ciprofloxacin for 7 days. Given patient problem chronicity I gave patient my LEAD FRONT END DEVELOPER referral for further management. Critical care attestation.: If time is entered above; I have spent that time in minutes in the direct care of this critically ill patient, excluding procedure time. ED Disposition Clinical Impression: UTI (urinary tract infection), Vaginal pain Disposition: TO HOME OR SELFCARE Is pt being admited?: No Condition: Stable Instructions: Urinary Tract Infection in Women (ED) Referrals: [facility] [Primary Care Provider] - 3-5 Days [facility] [Provider Group] - 3-5 Days
[2019-03-29 09:04] LABS: Bacteria,Urine 2+ /HPF (Negative); Bilirubin,Urine NEG (Negative); Blood,Urine NEG (Negative); Color,Urine Yellow (Yellow); Mucus,Urine FEW /HPF; Protein,Urine <15 mg/dL mg/dL (Negative); Urobilinogen,Urine < 2.0 mg/dL (<2.0)
[2019-03-29 09:05] LABS: HCG Qualitative,Urine Negative (Negative)
== END 2019-03-29 10:13 | disposition home or self-care (01) ==
LOC: ED 08:14
DX: N39.0 Urinary tract infection, site not specified (principal); I10 Essential (primary) hypertension; G43.909 Migraine, unspecified, not intractable, without status migrainosus; E11.9 Type 2 diabetes mellitus without complications; Z90.710 Acquired absence of both cervix and uterus; Z91.040 Latex allergy status; Z79.4 Long term (current) use of insulin; Z79.899 Other long term (current) drug therapy
CPT/HCPCS: 81001; 81025

== ENCOUNTER 2020-08-04 11:42 | Emergency (ER) | payer OTHER ==
--- NOTE | 2020-08-04 12:35 | Event Note ---
ED Screening Note Date of service: 08/04/20 Time: 12:34 ED Screening Note: 45-year-old female with history of diabetes and genital herpes Patient complains of genital herpes outbreak that is just not getting better. Onset July 07. Used to be on acyclovir but her primary care doctor switched her over to Valtrex. When her flareup occurred she was increased from 500 mg twice a day to 1000 g twice a day which she has been compliant with but she states just not helping. She was also given lidocaine gel to help the pain but she states not helping. She states that she saw her FLAT BED OPERATOR again on July 25, due to the severity of her vaginal pain a pelvic exam was not done but they did a blind swab and she states that she was told that that was normal. She states that she feels like her symptoms are getting worse. This initial assessment/diagnostic orders/clinical plan/treatment(s) is/are subject to change based on patients health status, clinical progression and re- assessment by fellow clinical providers in the ED. Further treatment and workup at subsequent clinical providers discretion. Patient/guardian urged not to elope from the ED as their condition may be serious if not clinically assessed and managed. Initial orders include: Pelvic exam, UA, hCG
[2020-08-04 13:20] LABS: Bilirubin,Urine NEG (Negative); Blood,Urine NEG (Negative); Color,Urine Yellow (Yellow); Mucus,Urine 2+ /HPF; Urobilinogen,Urine < 2.0 mg/dL (<2.0)
[2020-08-04 13:21] LABS: HCG Qualitative,Urine Negative (Negative)
--- NOTE | 2020-08-04 14:43 | Emergency Department Report ---
ED Female HPI - General Chief complaint: Urogenital-Female Stated complaint: OUTBREAK Time Seen by Provider: 08/04/20 13:02 Source: patient Mode of arrival: Ambulatory Limitations: No Limitations - History of Present Illness Initial comments: This is a 45-year-old female nontoxic, well nourished in appearance, no acute signs of distress presents to the ED with c/o of chronic herpes outbreak x2 years. Patient currently on Valtrex and follows up with her FILM REPRODUCER with last appointment was last week. Patient stated that symptoms have not improved or changed. Patient denies worsening symptoms. Patient denies any vaginal discharge. Patient denies any pelvic or abdominal pain. Patient denies any nausea, vomiting, chest pain, shortness of breathe, fever, chills, headache, back pain, numbness, tingling, stiff neck. Patient denies any urinary symptoms. Patient stated allergies to latex. -: year(s) Location: labia Radiation: non-radiating Severity: mild Severity scale (0 -10): 8 Quality: burning, aching Consistency: constant Improves with: none Worsens with: none Are you Now?: No Associated Symptoms: denies: vaginal discharge, vaginal bleeding, abdominal pain, nausea/vomiting, fever/chills, headaches, loss of appetite, dysuria, hematuria, rash, seizure, shortness of breath, syncope, weakness - Related Data Home Medications Medication Instructions Recorded Confirmed Last Taken Fluticasone [Flonase] 1 spray NS PRN PRN 07/11/18 07/18/18 07/11/18 09:00 Ibuprofen [Ibu] 400 mg PO PRN PRN 07/11/18 07/18/18 07/11/18 09:00 Previous Rx's Medication Instructions Recorded Last Taken Type metFORMIN [Glucophage] 500 mg PO BID #60 tablet 05/09/18 07/11/18 09:00 Rx Acyclovir [Zovirax Tab] 800 mg PO 5XD #40 tablet 10/25/18 Unknown Rx Fluconazole (Nf) [Diflucan TAB] 150 mg PO ONCE #1 tablet 10/25/18 Unknown Rx Insulin NPH/Regular [Novolin 70/30] 25 unit SQ BIDDIAB #15 ml 10/25/18 Unknown Rx metroNIDAZOLE [Flagyl] 500 mg PO Q12HR #20 tab 10/25/18 Unknown Rx Gabapentin [Neurontin] 300 mg PO Q8HR #60 capsule 01/01/19 Unknown Rx traMADoL [Ultram] 50 mg PO Q6HR PRN #12 tablet 01/01/19 Unknown Rx Lidocaine Viscous 2% 5 ml MM Q4H #240 udc 02/20/19 Unknown Rx Podofilox [Condylox 0.5%] 1 applicatio TP BID #1 gel..gram. 02/20/19 Unknown Rx traMADoL [Ultram 50 MG tab] 50 mg PO Q6HR PRN #15 tablet 03/01/19 Unknown Rx Acyclovir [Zovirax Tab] 800 mg PO Q12H #14 tab 03/29/19 Unknown Rx Ciprofloxacin HCl [Ciprofloxacin 500 mg PO Q12HR #14 tab 03/29/19 Unknown Rx TAB] metroNIDAZOLE [Flagyl] 500 mg PO Q12HR #14 tab 08/04/20 Unknown Rx Allergies Allergy/AdvReac Type Severity Reaction Status Date / Time latex AdvReac Itching Verified 07/18/18 07:02 ED Review of Systems ROS: Stated complaint: OUTBREAK Other details as noted in HPI Constitutional: denies: chills, fever Eyes: denies: eye pain, eye discharge, vision change ENT: denies: ear pain, throat pain Respiratory: denies: cough, shortness of breath, wheezing Cardiovascular: denies: chest pain, palpitations Endocrine: no symptoms reported Gastrointestinal: denies: abdominal pain, nausea, diarrhea Genitourinary: denies: urgency, dysuria, frequency, hematuria, discharge, abnormal menses, dyspareunia Musculoskeletal: denies: back pain, joint swelling, arthralgia Skin: denies: rash, lesions Neurological: denies: headache, weakness, paresthesias Psychiatric: denies: anxiety, depression Hematological/Lymphatic: denies: easy bleeding, easy bruising ED Past Medical Hx - Past Medical History Previous Medical History?: Yes Hx Hypertension: No Hx Diabetes: Yes Hx Headaches / Migraines: Yes (MIGRAINES) Hx HIV: No Additional medical history: neuropathy - Surgical History Past Surgical History?: Yes Additional Surgical History: Hysterectomy - Social History Smoking Status: Never Smoker Substance Use Type: None - Medications Home Medications: Home Medications Medication Instructions Recorded Confirmed Last Taken Type metFORMIN [Glucophage] 500 mg PO BID #60 tablet 05/09/18 07/18/18 07/11/18 09:00 Rx Fluticasone [Flonase] 1 spray NS PRN PRN 07/11/18 07/18/18 07/11/18 09:00 History Ibuprofen [Ibu] 400 mg PO PRN PRN 07/11/18 07/18/18 07/11/18 09:00 History Acyclovir [Zovirax Tab] 800 mg PO 5XD #40 tablet 10/25/18 Unknown Rx Fluconazole (Nf) [Diflucan TAB] 150 mg PO ONCE #1 tablet 10/25/18 Unknown Rx Insulin NPH/Regular [Novolin 70/30] 25 unit SQ BIDDIAB #15 ml 10/25/18 Unknown Rx metroNIDAZOLE [Flagyl] 500 mg PO Q12HR #20 tab 10/25/18 Unknown Rx Gabapentin [Neurontin] 300 mg PO Q8HR #60 capsule 01/01/19 Unknown Rx traMADoL [Ultram] 50 mg PO Q6HR PRN #12 tablet 01/01/19 Unknown Rx Lidocaine Viscous 2% 5 ml MM Q4H #240 udc 02/20/19 Unknown Rx Podofilox [Condylox 0.5%] 1 applicatio TP BID #1 gel..gram. 02/20/19 Unknown Rx traMADoL [Ultram 50 MG tab] 50 mg PO Q6HR PRN #15 tablet 03/01/19 Unknown Rx Acyclovir [Zovirax Tab] 800 mg PO Q12H #14 tab 03/29/19 Unknown Rx Ciprofloxacin HCl [Ciprofloxacin 500 mg PO Q12HR #14 tab 03/29/19 Unknown Rx TAB] metroNIDAZOLE [Flagyl] 500 mg PO Q12HR #14 tab 08/04/20 Unknown Rx ED Physical Exam - General Limitations: No Limitations General appearance: alert, in no apparent distress - Head Head exam: Present: atraumatic, normocephalic - Eye Eye exam: Present: normal appearance - Neck Neck exam: Present: normal inspection, full ROM - Respiratory Respiratory exam: Absent: respiratory distress - GI/Abdominal GI/Abdominal exam: Present: soft, normal bowel sounds. Absent: distended, tenderness, guarding, rebound, rigid, diminished bowel sounds - External exam: Present: lesions (Ulcer-like lesions to left labia consistent with herpes), other (Kelsey Ambrosio RN present during exam). Absent: erythema, swelling, lacerations, ecchymosis, bleeding Speculum exam: Present: normal speculum exam, other ([employer] Supervisor Daily FRANCO present during exam). Absent: erythema, vaginal discharge, cervical discharge, vaginal bleeding, foreign body, tissue, laceration Bi-manual exam: Present: normal bi-manual exam, other ([employer] Supervisor Daily FRANCO present during exam). Absent: cervical motion tendernes, adnexal tenderness, adnexal mass, uterine enlargement, uterine tenderness - Extremities Exam Extremities exam: Present: normal inspection, full ROM - Back Exam Back exam: Present: normal inspection, full ROM. Absent: tenderness, CVA tenderness (R), CVA tenderness (L), muscle spasm, paraspinal tenderness, vertebral tenderness, rash noted - Neurological Exam Neurological exam: Present: alert, oriented X3, normal gait - Psychiatric Psychiatric exam: Present: normal affect, normal mood - Skin Skin exam: Present: warm, dry, intact, normal color. Absent: rash ED Course Vital Signs 08/04/20 11:43 Temperature 98.0 F Pulse Rate 110 H Respiratory 16 Rate Blood Pressure 145/87 O2 Sat by Pulse 98 Oximetry - Reevaluation(s) Reevaluation #1: 08/04/20 14:42 Patient is speaking in full sentences with no signs of distress noted. ED Medical Decision Making - Lab Data Lab Results 08/04/20 Range/Units Unknown Urine Color Yellow (Yellow) Urine Turbidity Clear (Clear) Urine pH 5.0 (5.0-7.0) Ur Specific [place] 1.032 H (1.003-1.030) Urine Protein 30 mg/dl (Negative) mg/dL Urine Glucose (UA) Neg (Negative) mg/dL Urine Ketones Neg (Negative) mg/dL Urine Blood Neg (Negative) Urine Nitrite Neg (Negative) Urine Bilirubin Neg (Negative) Urine Urobilinogen < 2.0 (<2.0) mg/dL Ur Leukocyte Esterase Neg (Negative) Urine WBC (Auto) 3.0 (0.0-6.0) /HPF Urine RBC (Auto) 1.0 (0.0-6.0) /HPF U Epithel Cells (Auto) 4.0 (0-13.0) /HPF Urine Mucus 2+ /HPF Urine HCG, Qual Negative (Negative) - Medical Decision Making This is a 45-year-old female that presents with bacterial vaginosis and genital herpes. Patient is stable was examined by me. There is no abdominal tenderness. No pelvic pain. UA obtained. Wet prep obtained. Gonorrhea chlamydia swab pending. Patient was instructed to return in 3-5 days for GC results. I will not change patient's current medication as she does follow-up with a FILM REPRODUCER and has a plan of care with her FILM REPRODUCER. I will add Flagyl to patient's medication. Patient was instructed to Follow-up with a FILM REPRODUCER doctor in 3-5 days or if symptoms worsen and continue return to emergency room as soon as possible. At time of discharge, the patient does not seem toxic or ill in appearance. No acute signs of distress noted. Patient agrees to discharge treatment plan of care. No further questions noted by the patient. Critical care attestation.: If time is entered above; I have spent that time in minutes in the direct care of this critically ill patient, excluding procedure time. ED Disposition Clinical Impression: Bacterial vaginosis Genital herpes Qualifiers: Herpes simplex infection site: unspecified Qualified Code(s): A60.00 - Herpesviral infection of urogenital system, unspecified Disposition: DC- TO HOME OR SELFCARE Is pt being admited?: No Does the pt Need Aspirin: No Condition: Stable Instructions: Bacterial Vaginosis (ED), Bacterial Vaginosis, [id number] Additional Instructions: Follow-up with a FILM REPRODUCER doctor in 3-5 days or if symptoms worsen and continue return to emergency room as soon as possible. Prescriptions: metroNIDAZOLE [Flagyl] 500 mg PO Q12HR #14 tab Referrals: TIFFANIE ESTRADA [Other] - 3-5 Days [facility] [Referring] - 3-5 Days [facility] [Provider Group] - 3-5 Days [facility] [Provider Group] - 3-5 Days Forms: Work/School Release Form(ED) Time of Disposition: 14:44
[2020-08-04 15:14] VITALS: BP 132/72
== END 2020-08-04 15:14 | disposition home or self-care (01) ==
LOC: ED 11:42
DX: A60.09 Herpesviral infection of other urogenital tract (principal); N76.0 Acute vaginitis; B96.89 Other specified bacterial agents as the cause of diseases classified elsewhere; E11.9 Type 2 diabetes mellitus without complications; G43.909 Migraine, unspecified, not intractable, without status migrainosus; Z90.710 Acquired absence of both cervix and uterus; Z79.1 Long term (current) use of non-steroidal anti-inflammatories (NSAID); Z79.2 Long term (current) use of antibiotics; Z79.4 Long term (current) use of insulin; Z79.899 Other long term (current) drug therapy; Z91.040 Latex allergy status
CPT/HCPCS: 81001; 81025; 87210; 87591; 99284